=== PATIENT | male | born 1975 | race Two or more races ===

== ENCOUNTER 2021-02-07 07:10 | Emergency (ER) | payer OTHER ==
[~2021-02-07] VITALS: Ht 182.9 cm; Wt 90.7 kg
[2021-02-07] MEDS ORDERED: COZAAR50 MG PO (07:28)
[2021-02-07] MEDS ORDERED: PROZAC20 MG PO (07:28)
== END 2021-02-07 10:58 | disposition home or self-care (01) ==
LOC: ER 07:10
DX: R07.89 Other chest pain (principal)